=== PATIENT | male | born 1975 ===

== ENCOUNTER → 2022-10-16 08:02 | Outpatient (CLI) | payer OTHER, SELFPAY ==
--- NOTE | ~2022-10-16 | CT_ITS ---
EXAMINATION: CT diagnostic chest wo con DATE: 10/16/2022 08:17 INDICATION: Lung nodule TECHNIQUE: Computed tomography (CT) of the chest was performed without intravenous contrast. The dose -length product (DLP) was 124.96 mGy-cm. Automated exposure control and iterative reconstruction tech nique were employed. COMPARISON: None FINDINGS: There is mild emphysema. There is a 4 mm nodule of the right middle lobe. The lungs are kevin e of acute opacities. No pleural effusion or pneumothorax No pathologically enlarged thoracic lymph n odes are identified. The heart size is normal. There is calcification versus coronary artery stent of the right coronary artery. There is subendocardial fat deposition in the left ventricle, consistent with prior myocardial infarction. IMPRESSION: 1. 4 mm nodule of the right middle lobe, probably benign. Consider follow-up low-dose CT in 12 months . 2. Findings consistent with prior myocardial infarction. Reviewed, dictated and finalized at location B. IMPRESSION: 1. 4 mm nodule of the right middle lobe, probably benign. Consider follow-up lo w-dose CT in 12 months. 2. Findings consistent with prior myocardial infarction.
== END ==
PROVIDERS: PCP Internal Medicine; Visit Provider Internal Medicine
DX: R91.1 Solitary pulmonary nodule (principal)
CPT/HCPCS: 71250